=== PATIENT | male | born 1980 | race Caucasian/White ===

== ENCOUNTER 2021-03-24 08:48 | Emergency (ER) | payer MEDICAID ==
[~2021-03-24] VITALS: Ht 172.7 cm; Wt 86.2 kg
[2021-03-24 08:58] VITALS: BP 143/89
[2021-03-24] MEDS ORDERED: MORPHINE SULFATE 4 MG/ML SYR IVP ONE (09:00)
[2021-03-24] MEDS ORDERED: NACL 0.9% 1,000 ML IV ONE (09:00)
--- NOTE | 2021-03-24 09:00 | NUR ---
40 Y/O MALE C/O ABDOMINAL PAIN SHARP 10/10 RADIATES TO RLQ [id number] SUDDEN ONSET. PT STATES +N/V 4TIMES, DENIES FEVER/CHILLS. PT STATES "FEELS LIKE MY STOMACH IS RIPPING." TENDER TO TOUCH. ACTIVE BOWEL SOUNDS. DENIES PMH NKA
[2021-03-24] MEDS ORDERED: ONDANSETRON 4 MG/2 ML VIAL IVP ONE (09:05)
[2021-03-24 09:20] LABS: BASOPHILS # (AUTO) 0.1 K/uL (0.00-0.22); BASOPHILS % (AUTO) 0.9 % (0.0-2.0); EOSINOPHILS # (AUTO) 0.1 K/uL (0-0.4); HEMATOCRIT 47.7 % (36-52); HEMOGLOBIN 16.4 g/dL (12.0-18.0); LYMPHOCYTES % (AUTO) 31.4 % (20.5-51.1); MEAN CORPUSCULAR HEMOGLOBIN 33 pg (27-31); MEAN CORPUSCULAR HGB CONC 34 g/dL (33-37); MEAN CORPUSCULAR VOLUME 97.3 fL (80-94); MONOCYTES # (AUTO) 1.1 K/uL (0.8-1.0); MONOCYTES % (AUTO) 11.6 % (1.7-9.3); NEUTROPHILS # (AUTO) 5.2 K/uL (1.8-7.7); NEUTROPHILS % (AUTO) 55.1 % (42.2-75.2); PLATELET COUNT (AUTO) 343 K/uL (140-450); RED BLOOD CELL COUNT(AUTO) 4.91 MIL/uL (4.20-6.10); RED CELL DISTRIBUTION WIDTH 13.4 % (11.6-13.7); WHITE BLOOD COUNT (AUTO) 9.4 K/uL (4.8-10.8)
--- NOTE | 2021-03-24 09:21 | NUR ---
PT TAKEN TO CT SCAN VIA [facility]
--- NOTE | 2021-03-24 09:30 | NUR ---
PT RETURNED FROM CT
--- NOTE | 2021-03-24 09:31 | NUR ---
DR ANN EXAMINING PT
[2021-03-24] MEDS ORDERED: diphenhydrAMINE 50 MG/ML VIAL IVP ONE (09:35)
[2021-03-24] MEDS ORDERED: METOCLOPRAMIDE 10 MG/2 ML INJ VIAL IVP ONE (09:35)
[2021-03-24 09:38] LABS: ALBUMIN 4.8 g/dL (3.4-5.0); ANION GAP 19.1 (8-16); CARBON DIOXIDE 22.5 mmol/L (21-32); CREATININE 1.2 mg/dL (0.6-1.3); POTASSIUM 3.6 mmol/L (3.5-5.1); TOTAL BILIRUBIN 0.9 mg/dL (0.0-1.0)
--- NOTE | 2021-03-24 09:46 | NUR ---
PT UNABLE TO PROVIDE URINE AT THIS TME
--- NOTE | 2021-03-24 10:01 | NUR ---
PT'S AT BEDSIDE
[2021-03-24 11:04] LABS: APPEARANCE,URINE HAZY (CLEAR); BILIRUBIN,URINE 1+ (NEGATIVE); BLOOD, URINE 3+ (NEGATIVE); COLOR,URINE ORANGE (YELLOW); LEUKOCYTE ESTERASE ,URINE NEGATIVE (NEGATIVE); NITRITE, URINE NEGATIVE (NEGATIVE); UGLUCOSE NEGATIVE (NEGATIVE)
[2021-03-24 11:18] LABS: RBC,URINE 20-50 /HPF (0-5); WBC,URINE 0-5 /HPF (0-5)
[2021-03-24] MEDS ORDERED: IBUP-2213 PO (12:28)
[2021-03-24] MEDS ORDERED: METO-486 PO (12:28)
[2021-03-24 12:35] VITALS: BP 121/73
--- NOTE | 2021-03-24 12:35 | NUR ---
Patient discharged with v/s stable. Written and verbal after care instructions given and explained. Patient alert, oriented and verbalized understanding of instructions. Ambulatory with steady gait. All questions addressed prior to discharge. ID band removed. Patient advised to follow up with PMD. Rx of IBUPROFEN AND REGLAN given. Patient educated on indication of medication including possible reaction and side effects. Opportunity to ask questions provided and answered.
== END 2021-03-24 12:35 | disposition home or self-care (01) ==
LOC: MED 08:48
DX: N20.9 Urinary calculus, unspecified (principal); R11.2 Nausea with vomiting, unspecified; Z79.899 Other long term (current) drug therapy
CPT/HCPCS: 36415; 74176; 80053; 81001; 83690; 85025; 87086; 96374; 96375; 99284; J1200; J2270; J2405; J2765; J7030